=== PATIENT | female | born 1950 | race Hispanic/Latino ===

== ENCOUNTER 2018-01-12 14:57 | Outpatient (CLI) | payer MEDICARE, OTHER | END 2018-01-12 14:58 | disposition home or self-care (01) | LOC: BICMAMMO 14:57 | PROVIDERS: ATTEND Family Medicine | DX: Z12.31 Encounter for screening mammogram for malignant neoplasm of breast (principal); Z80.3 Family history of malignant neoplasm of breast | CPT/HCPCS: 77063; 77067; 77080 ==

== ENCOUNTER 2018-06-21 14:14 | Inpatient (IN) | payer MEDICARE, OTHER ==
[~2018-06-21 14:14] MED LIST: ISOVUE-370 76%-LOCM 1 ML ONE
[2018-06-21 14:39] LABS: #Eosinphils 0.3 thou/uL (0.0-0.7); #Lymphocytes 2.1 thou/uL (1.20-3.40); #Monocytes 0.5 thou/uL (0.11-0.59); #Neutrophils 3.8 thou/uL (1.40-6.50); %Basophils 0.6 % (0.0-1.0); %Eosinophils 3.8 % (0.0-10.0); %Lymphocytes 31.6 % (21.0-51.0); %Monocytes 8.1 % (0.0-10.0); Hemoglobin 13.6 g/dL (12.0-16.0); Mean Corpuscular HGB CONC 34.3 g/dL (32.0-36.0); Mean Corpuscular Hemoglobin 30.6 pg (27.0-31.0); Mean Corpuscular Volume 89.3 fL (78.0-98.0); Mean Platelet Volume 8.1 fL (7.4-10.4); Platelet Count 188 thou/uL (130-400); RBC Distribution Width 11.8 % (11.5-14.5); Red Blood Cell (RBC) Count 4.45 mill/uL (4.20-5.40); White Blood Cell (WBC) Count 6.7 thou/uL (4.8-10.8)
[2018-06-21 14:46] LABS: PTT 33.6 SEC (22.9-36.1); Prothrombin Time 12.9 SEC (12.0-14.7)
[2018-06-21 14:52] LABS: ALT (SGPT) 18 U/L (8-55); AST (SGOT) 20 U/L (5-34); Albumin 4.3 g/dL (3.4-4.8); Alkaline Phosphatase 92 U/L (40-150); Anion Gap 14 mmol/L (10-20); BUN (Urea Nitrogen) 20 mg/dL (9.8-20.1); Bilirubin, Total 0.9 mg/dL (0.2-1.2); Calc. Creatinine Clearance 0 mL/min (70-130); Calcium 9.6 mg/dL (7.8-10.44); Carbon Dioxide 20 mmol/L (23-31); Chloride 103 mmol/L (98-107); Estimated GFR-MDRD 34; Glucose 163 mg/dL (80-115); Potassium 5.2 mmol/L (3.5-5.1); Protein, Total 7.3 g/dL (6.0-8.3); Sodium 132 mmol/L (136-145)
--- NOTE | 2018-06-21 14:52 | CT ---
HEAD CT WITHOUT CONTRAST: Date: 06/21/18 HISTORY: Right-sided weakness. Difficulty in finding words. Last seen normal at 12:30 p.m.. FINDINGS: No parenchymal hemorrhage. No extra-axial hematoma. No midline shift. Basilar cisterns are patent. Br ain volume, age-appropriate. Cortical jhaveri-white matter differentiation preserved. Ventricles and sul ci are patent and symmetric. Hyperostosis frontalis interna noted. Adequate aeration of the paranasal sinuses. Sclerosis of the right mastoid air cells due to remote infection. Adequate left mastoid air cell aeration. Remote lacunar infarct in the right subinsular cortex. IMPRESSION: No acute intracranial process. Results of study discussed with Dr. Hernandez on 06/21/18 1432 hours. CODE CR. POS: [facility]
[2018-06-21 14:57] LABS: Troponin I Less than 0.010 ng/mL (< 0.028)
--- NOTE | 2018-06-21 15:26 | CT ---
CT ANGIOGRAM OF THE HEAD CT ANGIOGRAM OF THE NECK: Date: 06/21/18 HISTORY: Trouble with words, last see normal at 12:30. Right-sided weakness. COMPARISON: None. TECHNIQUE: CT angiogram of the head and neck performed in the axial plane. Three-dimensional reformatted images are submitted. FINDINGS: POSTCONTRAST HEAD CT: Cortical jhaveri-white matter differentiation appears to be preserved. Limited evaluation for intraparen chymal hemorrhage due to the presence of contrast. Bilateral ocular lenses are appropriately located. Both globes are intact. Retrobulbar fat is preserv ed. Symmetric attenuation of the optic nerves and ocular rectus muscles. Symmetric attenuation of the parotid and submandibular glands. Symmetric attenuation of sternocleidom astoid muscles. There is no evidence of lymphadenopathy by size criteria. There is no prevertebral soft tissue swelling. Mass effect upon the hypopharynx due to medial deviati on of both internal carotid arteries. Cervical spine vertebral body height is maintained. No fracture. Upper lung apices are unremarkable. Mediastinum is unremarkable. Visualized aortic arch has appropriate enhancement and luminal diameter. Right Carotid: The origin of the right carotid artery has appropriate enhancement and luminal diameter. The right co mmon carotid artery, carotid bifurcation, and internal carotid artery have appropriate enhancement an d luminal diameter. No significant stenosis based upon NASCET criteria. Left Carotid: The left common carotid artery, carotid bifurcation, and internal carotid artery have appropriate enh ancement and luminal diameter. No significant stenosis based upon NASCET criteria. Note, there may be a small focal ulcerative plaque in the left carotid bifurcation. Bilateral cervical vertebral arteries are patent throughout their course in the neck and are codomina nt. Bilateral subclavian arteries are patent. CT ANGIOGRAM OF HEAD: There is symmetric enhancement and luminal diameter of the distal cervical and intracranial internal carotid arteries. Anterior Circulation: Symmetric enhancement and luminal diameter of the A1 and M1 segments. Slightly diminutive right A1 se gment likely due to congenital variant. Proximal A2 segments are symmetric. Symmetric proximal MCA br anches. Posterior Circulation: Both vertebral arteries supply a diminutive basilar artery. The left and right PICA artery origins ar e unremarkable. The right GANG TAILER has a origin. The left GANG TAILER also has a origin. IMPRESSION: 1. Unremarkable CT angiogram of the neck. No significant stenosis. 2. Small ulcerative plaque in left carotid bifurcation. Results of study discussed with Dr. Hernandez on 06/21/18 at 1447 hours. CODE CR. POS: [facility]
[2018-06-21 17:31] VITALS: BMI 33.0
[2018-06-21] MEDS: Sodium Chloride 0.9% 1,000 ML IV SCH (18:49)
[2018-06-21] MEDS: Heparin 5,000 UNITS/ML VIAL SC SCH (20:47)
[2018-06-21] MEDS ORDERED: Atorvastatin Calcium 40 MG TAB PO SCH (21:00)
[2018-06-21 21:01] LABS: Troponin I Less than 0.010 ng/mL (< 0.028)
--- NOTE | 2018-06-21 23:14 | HP ---
DATE OF ADMISSION: 06/21/2018 CHIEF COMPLAINTS: Difficulty of expressing herself as with speech problem and some weakness in the r ight side and this happened unexpectedly. She was doing quite well until the onset of above-mentione d symptoms. She was brought to the emergency room for further evaluation, but emergency room physici an noticed that her symptoms were getting better during this evaluation, so TPA was not implemented s pebbles she was improving without any intervention. This was suggestive of a TIA more than progressive CVA. She never had this kind of problem before. She noticed the weakness in her right upper extremi ty and right lower extremity. PAST MEDICAL HISTORY: Positive for, 1. Coronary artery disease and status post stent placement x3. 2. Diabetes mellitus type 2. 3. Hypertension. 4. Hyperlipidemia. PAST SURGICAL HISTORY: , bunionectomy, and ankle surgery. CURRENT MEDICATIONS: The patient is not able to give us a list of her medications at this time. Her is going to call [facility] to find out the list. SOCIAL HISTORY: She is an ex-smoker, but she quit a long time ago. She does not truly drink much al cohol. She does not use any illicit drugs. FAMILY HISTORY: Her father and mother of CVAs in their 80s. ALLERGIES: PENICILLIN. She developed a rash. REVIEW OF SYSTEMS: CONSTITUTIONAL: Negative for fever and chills. EYES: Negative for eye pain and eye discharge. ENT: Negative for epistaxis and nasal congestion. CARDIOVASCULAR: Negative for chest pain, palpitations. RESPIRATORY: Negative for shortness of breath and cough. GASTROINTESTINAL: Negative for nausea, vomiting, and abdominal pain. GENITOURINARY: Negative for hematuria or dysuria. NEUROLOGIC: Positive for right-sided weakness and expressive aphasia. DERMATOLOGIC: Negative for skin rash or erythema. PSYCHIATRIC: Negative for suicidal or homicidal ideations. PHYSICAL EXAMINATION: VITAL SIGNS: Her blood pressure is 118/77, pulse is 66, respiratory rate is 16, and pulse oximetry i s 98% on room air. She is afebrile. HEENT: Head is atraumatic, normocephalic. Eyes are PERRLA. Sclerae is nonicteric. Extraocular mov ements within normal limits. There is no nystagmus. There is no strabismus. There is no facial maria g op. Oral mucosa is moist. NECK: Supple, no lymphadenopathy. Thyroid is not palpable. LUNGS: Clear. HEART: S1 and S2 normal, no S3, no S4, no any murmur. ABDOMEN: Soft, nontender, nondistended. Bowel sounds are present, no organomegaly. EXTREMITIES: No clubbing, cyanosis or edema. She has good pulses on both tibialis posterior and brinda salis pedis arteries similar bilaterally. NEUROLOGICAL: She is alert and oriented x4. There is not any sensory or motor deficits present duri ng my evaluation, she still has some difficulty to recall flex from the past. Cerebral function with in normal limits. LABORATORY DATA: White count of 6.7, hemoglobin 13.6, hematocrit 39.7, platelet count 188,000. INR 1.0, PT of 12.9, APTT 33.6, sodium 132, potassium 5.2, chloride 103, CO2 of 20, creatinine 1.53, BUN 20. Estimated GFR is 34, glucose 163. All other chemistry tests in the panel. Total protein 7.3, t roponin I less than 0.010, CK within normal limits. Creatinine kinase within normal limits. Brain C T showed remote lacunar infarct in the right subinsular cortex, otherwise within normal limits. The C T angiogram and CT [facility] [place] showed unremarkable CT angiogram of the neck, no significant sten osis and small ulcerative plaque in the left carotid bifurcation. Also, both vertebral arteries supp ly diminutive basilar artery, anterior circulation did not show any abnormalities. IMPRESSION 1. Acute cerebrovascular accident with right-sided hemiparesis, but improving relatively quickly and full recovery is very possible at this moment. There is evidence that she had small lacunar infarct in the past, most likely related to her high blood pressure issues. 2. Renal insufficiency. At this point, it is unclear whether it is acute on chronic or just acute. We will rehydrate her with normal saline 100 mL per hour and check her function tomorrow. 3. History of coronary artery disease and stenting on Plavix. We will continue Plavix. 4. Hyperlipidemia. We will start her on atorvastatin 40 mg at bedtime, so plan is full admission to stroke unit. Condition is fair at this point since she is improving quickly. She regained her righ t-sided function completely, at this point, we will obtain neurosurgical consultation. We will obtai n MRI of the brain without contrast. We will obtain echocardiogram to assess her LVEF and cardiac fu nction. We will continue Plavix and aspirin as I mentioned above, we will start atorvastatin and whe n her list of medications is available, we will reconcile and we will do Accu-Cheks every 6 hours sin ce she is not screened for her swallowing problems yet, but most likely she will be switched to a.c. and at bedtime tomorrow with coverage for my sliding scale. For now, she will be n.p.o. until she is screened and she will be on 5000 units of heparin for DVT prophylaxis and SCDs.
[2018-06-22] MEDS: Sodium Chloride 0.9% 1,000 ML IV SCH ×2 (05:33→18:24)
[2018-06-22 06:08] LABS: Cardiac Risk 3.5 (Less than 4.5)
[2018-06-22] MEDS ORDERED: Eucerin (Mineral Oil/Petrolatum,White) 30 gm Jar TOP PRN (06:52)
[2018-06-22] MEDS ORDERED: Nitroglycerin 0.4 MG TAB (25 Tab Bottle) SL PRN (06:52)
[2018-06-22] MEDS ORDERED: Diabetic Tussin 200 MG/10 ML UDCUP PO PRN (06:52)
[2018-06-22] MEDS ORDERED: Mag-Al 1200 mg/1200 mg/30 ML UDCUP PO PRN (06:52)
[2018-06-22] MEDS ORDERED: Artificial Tears 18 DROP/0.9 ML EA EYE PRN (06:52)
[2018-06-22] MEDS ORDERED: Calcium Carbonate 500 MG ChewTAB PO PRN (06:52)
[2018-06-22] MEDS ORDERED: Senokot 8.6 MG TAB PO PRN (06:52)
[2018-06-22] MEDS ORDERED: Zolpidem Tartrate 5 MG TAB PO PRN (06:52)
[2018-06-22] MEDS ORDERED: Loperamide HCl 2 MG CAP PO PRN (06:52)
[2018-06-22] MEDS ORDERED: Acetaminophen 325 MG TAB PO PRN (06:52)
[2018-06-22] MEDS ORDERED: HYDROcodone/Acetaminophen 5/325 mg Tablet PO PRN (06:52)
[2018-06-22] MEDS ORDERED: Ondansetron ODT 4 MG TAB PO PRN (06:52)
[2018-06-22] MEDS ORDERED: Ondansetron HCl/PF 4 MG/2 ML Vial IVP PRN (06:52)
[2018-06-22] MEDS ORDERED: Loratadine 10 MG TAB PO PRN (06:52)
[2018-06-22] MEDS ORDERED: Chloraseptic Spray 180 ml Bottle PO PRN (06:52)
[2018-06-22] MEDS ORDERED: Sodium Chloride 0.65% Nasal 44 ML BOT EA NARE PRN (06:52)
[2018-06-22] MEDS ORDERED: Milk Of Magnesia 30 ML UDCUP PO PRN (06:52)
[2018-06-22] MEDS ORDERED: hydrALAZINE 20 MG/ML VIAL SLOW IVP PRN (06:52)
[2018-06-22] MEDS ORDERED: Dextrose 5% in Water 1,000 ML IV PRN (06:57)
[2018-06-22] MEDS ORDERED: HumaLOG 300 UNITS/3 ML VIAL SC PRN ×2 (06:57)
[2018-06-22] MEDS ORDERED: Dextrose 50% Abboject 50 ML SYRINGE SLOW IVP PRN (06:57)
[2018-06-22 07:14] LABS: #Basophils 0.1 thou/uL (0.0-0.2); #Eosinphils 0.3 thou/uL (0.0-0.7); #Lymphocytes 2.5 thou/uL (1.20-3.40); #Monocytes 0.6 thou/uL (0.11-0.59); #Neutrophils 3.6 thou/uL (1.40-6.50); %Eosinophils 4.3 % (0.0-10.0); %Lymphocytes 34.8 % (21.0-51.0); %Monocytes 8.7 % (0.0-10.0); %Neutrophils 51.1 % (42.0-75.0); Hemoglobin 12.3 g/dL (12.0-16.0); Mean Corpuscular HGB CONC 34.6 g/dL (32.0-36.0); Mean Corpuscular Hemoglobin 30.7 pg (27.0-31.0); Mean Corpuscular Volume 88.7 fL (78.0-98.0); Mean Platelet Volume 7.4 fL (7.4-10.4); Platelet Count 141 thou/uL (130-400); RBC Distribution Width 11.7 % (11.5-14.5); Red Blood Cell (RBC) Count 4.02 mill/uL (4.20-5.40); White Blood Cell (WBC) Count 7.1 thou/uL (4.8-10.8)
[2018-06-22 07:24] LABS: Hemoglobin A1c 6.4 % (4.0-6.0)
[2018-06-22] MEDS ORDERED: glipiZIDE 5 MG TAB PO SCH (07:30)
[2018-06-22 07:36] LABS: Anion Gap 11 mmol/L (10-20); BUN (Urea Nitrogen) 18 mg/dL (9.8-20.1); Calc. Creatinine Clearance 58 mL/min (70-130); Carbon Dioxide 22 mmol/L (23-31); Chloride 109 mmol/L (98-107); Estimated GFR-MDRD 46; Glucose 87 mg/dL (80-115); Potassium 4.3 mmol/L (3.5-5.1); Sodium 138 mmol/L (136-145)
[2018-06-22] MEDS: Heparin 5,000 UNITS/ML VIAL SC SCH ×2 (08:59→21:44)
[2018-06-22] MEDS: Famotidine 20 MG TAB PO SCH (08:59)
[2018-06-22] MEDS: Aspirin 325 mg Enteric Coated Tablet PO SCH (08:59)
[2018-06-22] MEDS: Clopidogrel Bisulfate 75 MG TAB PO SCH (08:59)
--- NOTE | 2018-06-22 08:59 | MRI ---
MRI BRAIN WITHOUT CONTRAST: Date: 06/22/18 HISTORY: Right-sided weakness, difficulty in finding words. FINDINGS: Correlation is made with the previous day's CT scan. No restricted diffusion is seen. There is a small area of cortical and subcortical hyperintensity in the left parietal lobe without re stricted diffusion or volume loss. This most likely represents a late subacute infarction. No hemorrh age, midline shift, or abnormal extra-axial fluid collections are seen. Ventricular size is appropria te and the basilar cisterns are patent. There is mucosal disease in the paranasal sinuses. IMPRESSION: Findings suggestive of a late subacute left parietal infarction. A follow-up exam with and without IV contrast is recommended in 2-3 weeks. This study was interpreted in consultation with Dr. Sorin Rodriguez (neuroradiologist), who concurs. POS: OFF
[2018-06-22] MEDS ORDERED: glipiZIDE 10 MG TAB PO SCH (09:00)
[2018-06-22] MEDS ORDERED: Atorvastatin Calcium 10 MG TAB PO SCH ×2 (09:00→21:00)
--- NOTE | 2018-06-22 11:13 | PDOC.PN ---
- Subjective Encounter Start Date: 06/22/18 Encounter Start Time: 07:10 -: old records requested/rev pt feels fine today, feels weak, no confusion, no motor weakness - Objective Resuscitation Status: Resuscitation Status FULL:Full Resuscitation MAR Reviewed: Yes Vital Signs & Weight: Vital Signs (12 hours) Temp Pulse Pulse Pulse Resp BP BP 06/22/18 09:04 83 72 123/71 109/77 06/22/18 08:00 98.4 F 65 20 06/22/18 04:00 97.6 F 66 18 06/22/18 00:00 98.0 F 69 18 BP Pulse Ox 06/22/18 09:04 06/22/18 08:00 115/72 98 06/22/18 04:00 104/65 95 06/22/18 00:00 117/70 97 Weight Weight 169 lb 2 oz I&O: 06/21/18 06/22/18 06/23/18 06:59 06:59 06:59 Intake Total 240 Balance 240 Result Diagrams: 06/22/18 07:08 06/22/18 07:08 Additional Labs: Accuchecks 06/22/18 06/22/18 06/21/18 10:50 05:53 20:16 POC Glucose 212 H 99 148 H 06/21/18 14:22 POC Glucose 165 H Radiology Reviewed by me: Yes (MRI- left parital infarction, CT brain, CTA) EKG Reviewed by me: Yes (nsr) Phys Exam - Physical Examination Constitutional: NAD HEENT: PERRLA, moist MMs, sclera anicteric Neck: no JVD, supple Respiratory: no wheezing, no rales, no rhonchi Cardiovascular: RRR, no significant murmur, no rub Gastrointestinal: soft, non-tender, no distention, positive bowel sounds Musculoskeletal: no edema, pulses present Neurological: non-focal, normal sensation, moves all 4 limbs Lymphatic: no nodes Psychiatric: normal affect, A&O x 3 Skin: no rash, normal turgor Dx/Plan (1) CVA (cerebral vascular accident) Code(s): I63.9 - CEREBRAL INFARCTION, UNSPECIFIED Status: Acute Qualifiers: Laterality of affected vessel: left Comment: left parital infarction (2) Acute kidney injury Code(s): N17.9 - ACUTE KIDNEY FAILURE, UNSPECIFIED Status: Acute (3) Hyperkalemia Code(s): E87.5 - HYPERKALEMIA Status: Acute (4) Hyponatremia Code(s): E87.1 - HYPO-OSMOLALITY AND HYPONATREMIA Status: Acute (5) Hypotension Status: Acute (6) CAD (coronary artery disease) Code(s): I25.10 - ATHSCL HEART DISEASE OF [place] CORONARY ARTERY W/O ANG PCTRS Status: Chronic (7) Dyslipidemia Code(s): E78.5 - HYPERLIPIDEMIA, UNSPECIFIED Status: Chronic (8) Hypertension Code(s): I10 - ESSENTIAL (PRIMARY) HYPERTENSION Status: Chronic (9) Obesity (BMI 30.0-34.9) Code(s): E66.9 - OBESITY, UNSPECIFIED Status: Chronic - Plan cont current plan of care, PT/OT, social insurance analyst, DVT proph w/heparin * continue IVF for hydration * will hold BP meds for low BP * await echo result * neurology will see and stroke team evaluation * medication reviewed as below * symptomatic treatment. * continue asa, plavix, lipitor * will repeat labs tomorrow Review of Systems - Review of Systems Eyes: negative: Pain, Vision Change, Conjunctivae Inflammation, Eyelid Inflammation, Redness, Other ENT: negative: Ear Pain, Ear Discharge, Nose Pain, Nose Discharge, Nose Congestion, Mouth Pain, Mouth Swelling, Throat Pain, Throat Swelling, Other Respiratory: negative: Cough, Dry, Shortness of Breath, Hemoptysis, SOB with Excertion, Pleuritic Pain, Sputum, Wheezing Cardiovascular: negative: chest pain, palpitations, orthopnea, paroxysmal nocturnal dyspnea, edema, light headedness, other Gastrointestinal: negative: Nausea, Vomiting, Abdominal Pain, Diarrhea, Constipation, Melena, Hematochezia, Other Genitourinary: negative: Dysuria, Frequency, Incontinence, Hematuria, Retention , Other Musculoskeletal: negative: Neck Pain, Shoulder Pain, Arm Pain, Back Pain, Hand Pain, Leg Pain, Foot Pain, Other Skin: negative: Rash, Lesions, Nir, Bruising, Other Neurological: negative: Weakness, Numbness, Incoordination, Change in Speech, Confusion, Seizures, Other - Medications/Allergies Allergies/Adverse Reactions: Allergies Allergy/AdvReac Type Severity Reaction Status Date / Time Penicillins Allergy Intermediate Verified 06/21/18 20:46 Medications: Current Medications Acetaminophen (Tylenol) 650 mg PO Q4H PRN PRN Reason: Headache/Fever or Mild Pain Hydrocodone Bitart/Acetaminophen ([place] 5/325) 1 tab PO Q4H PRN PRN Reason: Moderate Pain (4-6) Al Hydroxide/Mg Hydroxide (Maalox) 15 ml PO Q4H PRN PRN Reason: Heartburn or Indigestion Artificial Tears (Tears Naturale) 0 drop EA EYE PRN PRN PRN Reason: Dry Eyes Aspirin (Ecotrin) 325 mg PO DAILY [facility] Last Admin: 06/22/18 08:59 Dose: 325 mg Atorvastatin Calcium (Lipitor) 10 mg PO HS [facility] Calcium Carbonate (Tums) 1,000 mg PO Q4H PRN PRN Reason: Heartburn or Indigestion Clopidogrel Bisulfate (Plavix) 75 mg PO DAILY [facility] Last Admin: 06/22/18 08:59 Dose: 75 mg Dextrose/Water (Dextrose 50%) 25 gm SLOW IVP PRN PRN PRN Reason: Hypoglycemia Famotidine (Pepcid) 20 mg PO DAILY [facility] Last Admin: 06/22/18 08:59 Dose: 20 mg Glucagon (Glucagon) 1 mg IM PRN PRN PRN Reason: Hypoglycemia Guaifenesin (Robitussin Sf) 200 mg PO Q4H PRN PRN Reason: Cough Heparin Sodium (Porcine) (Heparin) 5,000 units SC Q12HR [facility] Last Admin: 06/22/18 08:59 Dose: 5,000 units Hydralazine HCl (Apresoline) 10 mg SLOW IVP Q4H PRN PRN Reason: Systolic BP > 180 Sodium Chloride (Normal Saline 0.9%) 1,000 mls @ 100 mls/hr IV .Q10H [facility] Last Admin: 06/22/18 05:33 Dose: 1,000 mls Dextrose/Water (D5w) 1,000 mls @ 0 mls/hr IV .Q0M PRN PRN Reason: Hypoglycemia Insulin Human Lispro (Humalog) 0 units SC .MODERATE SLIDING SC PRN PRN Reason: Moderate [place] Scale Insulin Human Lispro (Humalog) 0 units SC .BEDTIME SLIDING SC PRN PRN Reason: Bedtime [place] Scale Loperamide HCl (Imodium) 2 mg PO PRN PRN PRN Reason: Diarrhea/Loose Stools Loratadine (Claritin) 10 mg PO DAILYPRN PRN PRN Reason: Sinus Symptoms Magnesium Hydroxide (Milk Of Magnesium) 30 ml PO DAILYPRN PRN PRN Reason: Constipation Mineral Oil/White Petrolatum (Eucerin Cream) 0 gm TOP BIDPRN PRN PRN Reason: Dry Skin Nitroglycerin (Nitrostat) 0.4 mg SL Q5MIN PRN PRN Reason: Chest Pain Ondansetron HCl (Zofran Odt) 4 mg PO Q6H PRN PRN Reason: Nausea/Vomiting Ondansetron HCl (Zofran) 4 mg IVP Q6H PRN PRN Reason: Nausea/Vomiting Phenol (Chloraseptic [place] 180 Ml Bot) 0 ml PO PRN PRN PRN Reason: Sore Throat Senna (Senokot) 2 tab PO HSPRN PRN PRN Reason: Constipation Sodium Chloride ([place] Nasal [place] 0.65%) 0 ml EA NARE QIDPRN PRN PRN Reason: Nasal Congestion Zolpidem Tartrate (Ambien) 5 mg PO HSPRN PRN PRN Reason: Insomnia
[2018-06-22 14:13] LABS: Bilirubin Negative (Negative); Blood, Urine Negative (Negative); Clarity CLEAR (Clear); Glucose, Urine (Dipstick) Negative (Negative); Leukocyte Negative (Negative); Nitrite Negative (Negative); Protein, Urine (Dipstick) Negative (Neg-Trace); Specific Gravity, Urine 1.011 (1.002-1.036); Urobilinogen 0.2 mg/dL (0.2-1.0); pH, Urine 6.5 (5.0-9.0)
[2018-06-22 14:14] LABS: Bacteria/HPF None Seen HPF (None Seen); Hyaline Casts/LPF 0-3 HYALINE CAST LPF (0-3 Hyaline); Pathc Cast-AUWi Flag 0.87 (0-2.49); RBC/HPF 0-3 HPF (0-3); Squamous Epithelial 0-3 HPF (0-3); WBC/HPF None Seen HPF (0-3)
--- NOTE | 2018-06-23 00:16 | CON ---
DATE OF CONSULTATION: 06/22/2018 REASON FOR CONSULTATION: Aphasia. REFERRING PROVIDER: Brandon Cash M.D. HISTORY OF PRESENT ILLNESS: Ms. Erwin is a pleasant 67-year-old female who has been cons ulted for evaluation of aphasia. The patient reports that on yesterday, she had sudden onset of diff iculty with expressing herself, which prompted her to present to the [facility]. She reports that on about last Wednesday, she was in her kitchen and suddenly had passed out for 1-2 seconds with a full recovery. She did not seek any medical attention at that time. She denies having noted vision changes, diplopia, ptosis, numbness, tingling, weakness on upper and lower extremities, dysar thria or dysphagia. She notes her balance has been okay. She denies any headache, chest pain or pal pitations. PAST MEDICAL HISTORY: Significant for hypertension, diabetes, hyperlipidemia, coronary artery diseas e. PAST SURGICAL HISTORY: Significant for and ankle surgery. SOCIAL HISTORY: She is an ex-smoker. She denies alcohol use or illicit drug use. FAMILY HISTORY: Significant for her father and mother of stroke. CURRENT MEDICATIONS: Please review MAR. ALLERGIES: Include PENICILLIN. REVIEW OF SYSTEMS: As mentioned in the HPI, otherwise negative. PHYSICAL EXAMINATION: VITAL SIGNS: Blood pressure 141/76, pulse of 76, temperature of 98.4, respirations of 20, O2 sats 95 % on room air. GENERAL: Well-developed, well-nourished female in no apparent distress. RESPIRATORY: Clear to auscultation bilaterally. CARDIOVASCULAR: Regular rate and rhythm. NEUROLOGIC: Mental status: The patient is awake, alert, oriented x3. Speech and language very subt le and mild expressive aphasia noted. Cranial nerves: Pupils are 3 mm and reactive. Visual florian are intact. External muscles are intact. No nystagmus is noted. Face is symmetric. Tongue and uvu la are midline. Motor exam showed normal tone and bulk with a 5/5 strength in both upper and lower e xtremities. Sensory: Sensation is intact and symmetric. Deep tendon reflexes 2+ reflexes in both u pper and lower extremities. Babinski: Plantar responses flexion bilaterally. Coordination intact t o [id number] tapping bilaterally. LABORATORY DATA: Reviewed, which included CBC, BMP, hemoglobin A1c, lipid profile, and urinalysis, w [facility] is significant for hemoglobin A1c of 6.4, total cholesterol of 98, LDL of 36, HDL of 28, and tri glycerides of 171, otherwise negative. IMAGING STUDIES: MRI brain without contrast was reviewed, which showed late subacute posterior left parietal ischemic infarct. CT angiogram of the head and neck were reviewed, which showed no acute in tracranial or extracranial vascular abnormality. IMPRESSION: 1. Late subacute left posterior parietal ischemic infarct. 2. Hypertension. 3. Diabetes. 4. Expressive aphasia, likely due to late subacute left posterior parietal ischemic infarct. Ms. Cortes is a pleasant 67-year-old female who presented with an acute onset of expressiv e aphasia. Her MRI shows late subacute left posterior parietal ischemic infarct. At this time, I wo uld recommend continuing Plavix 75 mg and adding aspirin 81 mg daily for secondary stroke prevention. I am concerned based on the location that this may be cardioembolic stroke and thus I would recomme nd obtaining transesophageal echocardiogram. If that is normal, the patient is okay to be discharged to home. She may need a follow up with Dr. Correa as outpatient for possible link device placement. Continue supportive care. Thank you for consultation.
[2018-06-23] MEDS: Sodium Chloride 0.9% 1,000 ML IV SCH ×2 (01:14→12:23)
[2018-06-23] MEDS ORDERED: Fentanyl 100 MCG/2 ML VIAL ONE (10:35)
[2018-06-23 11:00] VITALS: TEMP 97.9
--- NOTE | 2018-06-23 11:11 | DIS ---
DATE OF ADMISSION: 06/21/2018 DATE OF DISCHARGE: 06/23/2018 PRIMARY CARE PHYSICIAN: [facility] call admission. DISCHARGE DISPOSITION: Home. PRIMARY DISCHARGE DIAGNOSES: 1. Acute left parietal infarction. 2. Acute kidney failure. 3. Hyperkalemia and hyponatremia, resolved. 4. Hypotension, resolved. SECONDARY DISCHARGE DIAGNOSES: Hypertension, dyslipidemia, obesity with BMI 33 , coronary artery disease. PRIMARY PROCEDURE AND OPERATION: JYOTI. RADIOLOGICAL INVESTIGATION: CT brain negative for any acute intracranial process. CT [place] and CT angiography neck negative for any stenosis. MRI brain showed left parietal infarction. Echocardiography showed diastolic dysfunction. SIGNIFICANT LABORATORY DATA: Hemoglobin 12.3. ESR 6. INR 1.0, hemoglobin A1c 6.4. Homocysteine 10.69, LDL 36. Cardiac enzyme negative. Troponin negative. Creatinine 1.18. Sodium and potassium are normal. Urinalysis normal. DISCHARGE MEDICATIONS: Note, the patient instruction given about starting on Coreg, Aldactone, glipizide and other diabetes medication based on blood pressure as well as blood sugar. The patient expressed understanding. The patient was on following medications, Trulicity 0.75 mg every 7 days, aspirin 81 mg p.o. daily, Lipitor 10 mg p.o. daily, Coreg 25 mg p.o. b.i.d., Plavix 75 mg p.o. daily, glipizide 10 mg p.o. t.i.d., Aldactone 25 mg p.o. daily. CONTRAINDICATIONS: None. CODE STATUS: FULL CODE. INPATIENT CONSULTANTS: Dr. Angelica Lal was consulted while in hospital. Cardiology group was consulted while in hospital. TEST RESULTS PENDING ON DISCHARGE: None. ALLERGIES: PENICILLIN. DISCHARGE PLAN: Post hospital, the patient will follow up with primary care physician, mail handler assistant, and Dr. Angelica Lal as instructed. HOSPITAL COURSE: A 67-year-old female who was admitted by Dr. Cash on . Please see his H&P for further details. The patient was admitted for stroke-like symptoms. She had a negative CT brain and a CT angiography, but subsequently MRI did show acute left parietal infarction. Entire stroke team was consulted while in hospital. The patient was observed neurologically while in hospital. Echocardiography showed diastolic dysfunction. Neurology recommended JYOTI and that is why Cardiology was consulted and the patient is planned for JYOTI later on today. Telemetry remained so far unremarkable. On admission, she had hypotension, acute kidney failure, hyponatremia, hyperkalemia , and that is why we holded her blood pressure medication while in hospital and given IV fluid. Her electrolytes improved. Her renal function improved. We had patient education about starting on blood pressure medication depending upon systolic and diastolic blood pressure and she will follow up with primary care physician for adjustment of medication. Similarly, we also provided the patient education about starting back on glipizide as well as Trulicity regarding her blood sugar. The patient expressed understanding. PHYSICAL EXAMINATION: The patient is seen and examined at bedside today. VITAL SIGNS: Currently, temperature 98.4, pulse 72, respiratory rate 16, saturation 93% on room air, blood pressure 108/57, weight 169 pounds. GENERAL: The patient is currently alert, awake, no acute distress. HEAD: Normocephalic, atraumatic. EYES: Pupils round, reactive to light. ENT: Oropharynx within normal limits. Moist mucous membranes. NECK: Supple, no JVD, no thyromegaly, no carotid bruit. LUNGS: Clear to auscultation without any rhonchi or rales. CARDIAC: S1, S2 appears regular. No murmur, no gallop, no rub. ABDOMEN: Soft and benign. EXTREMITIES: No edema. NEUROLOGIC: Grossly nonfocal examination. FOLLOWUP: The patient will follow up with primary care physician and mail handler assistant. Overall, the patient is medically stable for discharge today. JYOTI is normal MTDD
--- NOTE | 2018-06-23 11:56 | ADD-CON ---
ADDENDUM This is an addendum to the note already dictated by the family practice resident. DATE OF ADMISSION: 06/21/2018 DATE OF CONSULTATION: 06/23/2018 INDICATION FOR CONSULTATION: A 67-year-old female with what appears to be a subacute left parietal i nfarction. We advised to see her right in consultation due to a request for a transesophageal echoca rdiogram to rule out any evidence of intracardiac thrombi, masses, or structural abnormalities that m ay be an etiology for the CVA. This unfortunate lady has undergone angioplasty and stent placed abou t 10 years ago. She has been followed by Dr. Montenegro of [facility] for the last couple of years after she moved here from [place]. She has had no previous cerebral problems or neurologic deficits until just this last event, which brought her to the hospital at this time. She has been on aspirin and Plavix since her stent placements. She also had a recent stress test [facility], which was unremarkable. She has also had an echocardiogram on this admission, which showed a normal ejection fraction. No structural abnormalities. The left atrium was of normal size. There was no indication that the patient had any ASD or patent foramen ovale. She did have evidence of di astolic dysfunction, but a normal ejection fraction. At this time, we will be more than happy to pro ceed with the transesophageal echocardiogram. I have discussed with her the procedure and the risks involved and she will plan for this earlier this morning as soon as we can have anesthesia assistance for anesthesia for the patient for sedation. PHYSICAL EXAMINATION: GENERAL: Reveals well-developed, well-nourished female who is in no acute distress. She is alert an d oriented. VITAL SIGNS: Stable. Her blood pressure is 108/57, heart rate is 72 and regular, she is afebrile, r espiratory rate is 16. HEENT: Unremarkable. CHEST: Clear. CARDIOVASCULAR: Exam reveals a regular rate and rhythm. EXTREMITIES: Show no edema. The remainder of the history and physical, please refer the notes already dictated by the resident. IMPRESSION: 1. 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 2. History of coronary artery disease. This remains stable at this time. There is no indication sh e has any ischemic changes or any ischemia and the stents apparently appear to be stable. We are unc ertain as to which vessel was stented at this time. 3. History of myocardial infarction at the time of the original stent placement. She apparently rec overed from this. She has a normal ejection fraction and otherwise seems to be doing quite well. 4. History of hypertension. This is also under good control at this time. 5. Dyslipidemia. She will continue on her present statin medications. 6. What appears to be diabetes, this will need to be addressed by the primary care service. 7. What appears to be some renal insufficiency. This actually has improved since admission. The cr eatinine is 1.5, it is now down almost to normal at 1.18. Thank you very much for asking us to participate in the care of Mr. Erwin and further recommendati ons will follow after the transesophageal echocardiogram.
--- NOTE | 2018-06-23 12:05 | ECHO ---
CARDIOLOGY PROCEDURE NOTE: Date: 06/23/18 PROCEDURE: Transesophageal echocardiogram. INDICATION FOR PROCEDURE: 67-year-old female with CVA. She was advised to undergo a transesophageal echocardiogram to rule out any evidence of intracardiac thrombi, masses, vegetations, or any other structural abnormalities that might be the etiology of her CVA. PROCEDURE DETAILS: The patient was taken to the recovery area, where she underwent short-active propofol. The transesoph ageal probe was easily passed down the distal esophagus IMPRESSION: 1. Normal left ventricular systolic function. Ejection fraction estimated at 55-60%. 2. Mild to moderate mitral valve regurgitation. 3. Mild tricuspid valve regurgitation. 4. Normal aortic valve without evidence of vegetations. There were no vegetation on any of the valve s. 5. No evidence of left atrial or left atrial appendage thrombus. 6. She also had a bubble study performed which showed no evidence of patent foramen ovale or atrial septal defects. There were no significant abnormalities noted on the transesophageal echocardiogram that would indica te an etiology for her CVA. She tolerated the procedure well. There were no difficulties or complicat ions encountered. She was given short-acting propofol for the procedure.
[2018-06-23] MEDS: Heparin 5,000 UNITS/ML VIAL SC SCH (12:18)
[2018-06-23] MEDS: Aspirin 325 mg Enteric Coated Tablet PO SCH (12:19)
[2018-06-23] MEDS: Famotidine 20 MG TAB PO SCH (12:20)
[2018-06-23] MEDS: Clopidogrel Bisulfate 75 MG TAB PO SCH (12:20)
[2018-06-23 13:22] VITALS: BP 111/67
--- NOTE | 2018-06-23 13:50 | CON-2 ---
DATE OF CONSULTATION: 06/23/2018 TIME: 929 REASON FOR CONSULTATION: Transient ischemic attack with possible cardioembolic etiology. CHIEF COMPLAINT: Expressive aphasia and right hemiparesis. HISTORY OF PRESENT ILLNESS: This is a 67-year-old female presenting to ED with a 1-day history of tr ansient right-sided upper and lower extremity numbness that evolved into an expressive aphasia and ri ght-sided hemiparesis the night before coming to the ER. The patient began feeling fine and noticed some right-sided neglect with persistent headaches and was taken to the ER for further evaluation. W jaqueline in the ER, her focal neuro deficits resolved and it was decided to forego TPA administration. C T noncontrast of the head was negative on initial workup. Further imaging showed a subacute left pos terior parietal ischemic infarct by MRI. CTA of the head and neck was negative except for a small ul cerative plaque in the left carotid bifurcation. Cardiology has been consulted by Neurology to asses s for cardioembolic etiology of this TIA. This morning, the patient is back to her baseline. She en dorses no deficits, numbness, weakness, or headaches. She is laughing and talking appropriately and has no complaints. She denies any chest pain, shortness of breath, diaphoresis, or palpitations. PAST MEDICAL HISTORY: 1. Diabetes mellitus type 2. 2. Hypertension. 3. Hyperlipidemia. 4. Coronary artery disease status post one stent approximately 10 years ago. 5. History of rheumatic fever as a child, but no known mitral valve disease. PAST SURGICAL HISTORY: 1. . 2. Bunionectomy. 3. Ankle surgery. ALLERGIES: PENICILLIN. SOCIAL HISTORY: The patient is a former smoker. She smoked approximately for 15 years, maybe 1-2 ci garettes per day. REVIEW OF SYSTEMS: Constitutional: Negative for fever or chills. ENT: Negative for nasal congesti on or epistaxis. Cardiovascular: Negative for chest pain, palpitations, syncope. Respiratory: Nega tive for shortness of breath. Gastrointestinal: Negative for nausea, vomiting, diarrhea. Neurologi c: Negative for right-sided weakness or aphasia at this time. Psychiatric: Negative for anxiety, de pression. PHYSICAL EXAMINATION: VITAL SIGNS: Temperature 98.4, pulse 72, respirations 16, O2 sat of 93% on room air, and blood press ure of 108/57. GENERAL: She is alert, oriented x4 with appropriately interactive. HEENT: Head is atraumatic, normocephalic. Eyes: Pupils equally round and react to light and accomm odation. Extraocular movements are intact. NECK: Supple. No lymphadenopathy. LUNGS: Clear to auscultation bilaterally. HEART: Regular rate and rhythm. No murmurs. ABDOMEN: Soft, nontender and nondistended. NEUROLOGIC: Strength is 5/5. Sensation is intact. Cerebellar function is normal. SIGNIFICANT LABORATORY DATA: Include hemoglobin 12.3, hematocrit 35.7, platelets 141. Coags: PT is 12.9, INR is 1.0, PTT 33.6, hemoglobin A1c 6.4, creatinine is 1.18, triglycerides 171, cholesterol 9 8, LDL 36, HDL 28. Homocysteine of 10.7. Troponins are negative x3. IMPRESSION: Transient ischemic attack with resolution of neurological deficits and aphasia. Neurolo gy has evaluated and recommended to continue aspirin, Plavix, and Lipitor with transesophageal echoca rdiogram. Cardiology has been consulted to further assess cardioembolic risk. Risk factors are well controlled at this time. The patient has been cleared by physical therapy, occupational therapy, an d speech. Transthoracic echo was already showed an ejection fraction of 55%-60% with the E-A flow re versal indicating possible diastolic dysfunction. Telemetry monitoring showed no arrhythmias. We wi ll await further results for JYOTI and followup is indicated. This history, evaluation and assessment has been discussed with Dr. Merritt.
[2018-06-23] MEDS ORDERED: Lidocaine 1% PF 5 ML VIAL ONE (14:38)
[2018-06-23] MEDS ORDERED: PROPOFOL 200 MG/20 ML VIAL ONE (14:38)
== END 2018-06-23 14:41 | disposition home or self-care (01) | DRG 65 ==
LOC: ERS 14:14 → 2SE 15:42
PROVIDERS: ADMIT Internal Medicine; ATTEND Internal Medicine
PROC: B24BZZ4 Ultrasonography of Heart with Aorta, Transesophageal (ICD-10-PCS; principal; 2018-06-23)
DX: I63.9 Cerebral infarction, unspecified (principal); G81.91 Hemiplegia, unspecified affecting right dominant side; N17.9 Acute kidney failure, unspecified; E87.1 Hypo-osmolality and hyponatremia; I25.10 Atherosclerotic heart disease of native coronary artery without angina pectoris; Z95.5 Presence of coronary angioplasty implant and graft; E11.9 Type 2 diabetes mellitus without complications; Z79.4 Long term (current) use of insulin; I10 Essential (primary) hypertension; E78.5 Hyperlipidemia, unspecified; Z87.891 Personal history of nicotine dependence; Z88.0 Allergy status to penicillin; E87.5 Hyperkalemia; I95.9 Hypotension, unspecified; E66.9 Obesity, unspecified; Z68.33 Body mass index [BMI] 33.0-33.9, adult; Z79.84 Long term (current) use of oral hypoglycemic drugs; R47.01 Aphasia; Z79.01 Long term (current) use of anticoagulants
CPT/HCPCS: 36415; 36416; 70450; 70496; 70498; 70551; 80048; 80053; 80061; 81001; 82553; 83036; 83090; 84484; 85025; 85610; 85652; 85730; 93005; 93306; 93312; G8978-GP-CH; G8979-GP-CH; G8980-GP-CH; G8987-GO-CI; G8988-GO-CI; G8989-GO-CI; G9162-GN-CJ; G9163-GN-CI; J1644; J2001; J2704; J3010

== ENCOUNTER 2024-05-26 17:15 | Emergency (ER) | payer MEDICARE, OTHER | END 2024-05-26 19:53 | LOC: ERS 17:15 | DX: S09.90XA Unspecified injury of head, initial encounter (principal); S16.1XXA Strain of muscle, fascia and tendon at neck level, initial encounter; I10 Essential (primary) hypertension; E78.5 Hyperlipidemia, unspecified; E11.9 Type 2 diabetes mellitus without complications; Z87.891 Personal history of nicotine dependence; W01.0XXA Fall on same level from slipping, tripping and stumbling without subsequent striking against object, initial encounter | CPT/HCPCS: 70450; 72125 ==